=== PATIENT | male | born 1930 | race Caucasian/White ===

== ENCOUNTER 2017-11-24 09:11 | Day surgery (SDC) | payer MEDICARE, OTHER ==
[~2017-11-24 09:11] MED LIST: Acetaminophen TAB* 325 MG PO PRN; Buffered Lidocaine 0.9% SYRIN* 5 ML/SYR SYRINGE INTRADERM ONE
[2017-11-24] MEDS ORDERED: Midazolam* 1 MG/ML 2 ML VIAL (2 MG) ONE (10:20)
[2017-11-24 11:35] VITALS: BP 158/92
[2017-11-24] MEDS ORDERED: Cyclopentolate 1% OPTH.SOL* 2 ML BTL ONE (12:38)
[2017-11-24] MEDS ORDERED: Phenylephrine 2.5% OPTH.SOL* 2 ML BTL ONE (12:38)
[2017-11-24] MEDS ORDERED: Lidocaine 1% MPF* 2 ML VIAL ONE (12:38)
[2017-11-24] MEDS ORDERED: Tetracaine 0.5% OPTH.SOL 4 ML* 1 DROP BTL ONE (12:39)
[2017-11-24] MEDS ORDERED: Tropicamide 1% OPTH.SOL* BTL ONE (12:39)
[2017-11-24] MEDS ORDERED: Neomycin/Polymy/Dex OPHTH.OIN* 3.5 GM ONE (12:39)
[2017-11-24] MEDS ORDERED: Ketorolac 0.5% OPHTH (NF) 0.5 % 5 ML BTL ONE (12:39)
--- NOTE | 2017-11-25 02:55 | OP ---
DATE OF OPERATION: 11/24/17 - [facility] DATE OF : 30 SURGEON: Robe Serrano MD OVERLOCK COLLAR SETTER: None. ANESTHESIA: Topical with intravenous sedation. PRE-OP DIAGNOSIS: Cataract with glaucoma, left eye. POST-OP DIAGNOSIS: Cataract with glaucoma, left eye. OPERATIVE PROCEDURE: Phacoemulsification, cataract extraction with posterior chamber intraocular lens implant, left eye and iStent implant, left eye. COMPLICATIONS: None. BLOOD LOSS: None. DESCRIPTION OF PROCEDURE: The patient was brought to the operating room and given a small amount of intra-venous sedation. A drop of Tetracaine was placed into his left eye. The patient was prepped and draped in the usual sterile fashion for ophthalmic surgery and attention was directed to the left eye, where a speculum was placed. A para-centesis was created at the 5 o'clock position and 0.1 cc of 1% preservative-free lidocaine was injected into the anterior chamber followed by DisCoVisc. The eye was digitally stabilized while a 2.75 mm keratome was used to create a triplanar clear corneal incision at the 3 o'clock position. A continuous curvilinear capsulorrhexis was created with a cystotome and Utrata forceps. BSS on a cannula was used to hydrodissect the lens from the capsule. Phacoemulsification was performed in a divide-and- conquer technique to create 4 fragments, which were removed. Residual cortical material was removed with irrigation and aspiration. DisCoVisc was used to inflate the capsular bag. An AU00T0 20.5 diopter lens was folded and inserted into the capsular bag. Supplemental DisCoVisc was placed to the anterior chamber. DisCoVisc was also placed on the surface of the cornea. The patient' s head was rotated away from the surgeon and the microscope was rotated towards the surgeon. A gonioprism was placed on the surface of the eye. Under direct visualization, iStent was implanted into the nasal trabecular meshwork. The gonioprism was removed. The patient's head and microscope were returned to a neutral position. Viscoelastic was removed from the eye using irrigation aspiration. BSS on a cannula was used to hydrate the corneal stroma and seal the wound. At the end of the case, the pupil was round. The lens was centered and stable. The iStent was in good position. The eye pressure appeared normal and the wound was water tight. Topical Maxitrol ointment was placed on the surface of the eye. The eye was closed, patched and shielded, and the patient was sent to recovery room in stable condition with postop instructions and followup appointment given. [id number]/[facility] #: [id number] YISSEL
== END 2017-11-24 11:40 | disposition home or self-care (01) ==
LOC: OREAST 09:11
PROVIDERS: ATTEND Ophthalmology
DX: H25.12 Age-related nuclear cataract, left eye (principal); H40.89 Other specified glaucoma; I48.91 Unspecified atrial fibrillation; Z79.01 Long term (current) use of anticoagulants; Z85.828 Personal history of other malignant neoplasm of skin
CPT/HCPCS: A9270-GY; C1783; J2250; V2632

== ENCOUNTER 2017-12-08 11:52 | Day surgery (SDC) | payer MEDICARE, OTHER ==
[~2017-12-08 11:52] MED LIST changes: +Midazolam* 1 MG/ML 2 ML VIAL (2 MG) IV SCH; +fentaNYL* 50 MCG/ML 2 ML VIAL (100 MCG VIAL) IV SCH
[2017-12-08] MEDS ORDERED: Phenylephrine 2.5% OPTH.SOL* 2 ML BTL ONE (12:42)
[2017-12-08] MEDS ORDERED: Tropicamide 1% OPTH.SOL* BTL ONE (12:42)
[2017-12-08] MEDS ORDERED: Lidocaine 1% MPF* 2 ML VIAL ONE (12:42)
[2017-12-08] MEDS ORDERED: Ketorolac 0.5% OPHTH (NF) 0.5 % 5 ML BTL ONE (12:42)
[2017-12-08] MEDS ORDERED: Tetracaine 0.5% OPTH.SOL 4 ML* 1 DROP BTL ONE (12:42)
[2017-12-08] MEDS ORDERED: Cyclopentolate 1% OPTH.SOL* 2 ML BTL ONE (12:42)
[2017-12-08] MEDS ORDERED: Phenylephr/Ketorolac 1%/0.3% OPH DROP BTL ONE (12:42)
[2017-12-08] MEDS ORDERED: Neomycin/Polymy/Dex OPHTH.OIN* 3.5 GM ONE (12:42)
[2017-12-08 13:47] VITALS: BP 144/91
--- NOTE | 2017-12-09 12:04 | OP ---
OPERATIVE REPORT: DATE OF OPERATION: 12/08/17 DATE OF : 30 SURGEON: Robe Serrano MD. NUCLEAR PLANT INSTRUMENT TECHNICIAN: None. ANESTHESIA: Topical with intravenous sedation. PRE-OP DIAGNOSIS: Cataract and glaucoma, right eye. POST-OP DIAGNOSIS: Cataract and glaucoma, right eye. OPERATIVE PROCEDURE: Phacoemulsification and cataract extraction with posterior chamber intraocular lens implant and CyPass implant, right eye. COMPLICATIONS: None. BLOOD LOSS: None. OPERATIVE FINDINGS: The patient was brought to the operating room and given a small amount of intrav enous sedation. A drop of Tetracaine was placed into his right eye. The patient was prepped and debby ped in the usual sterile fashion for ophthalmic surgery and attention was directed to the right eye w here a speculum was placed. A paracentesis was created at the 11 o'clock position and 0.1 cc of 1% p reservative-free Lidocaine was injected into the anterior chamber followed by DisCoVisc. The eye was digitally stabilized while a 2.75 mm keratome was used to create a triplanar clear corneal incision at the 9 o'clock position. A continuous curvilinear capsulorrhexis was created with a cystotome and Utrata forceps. BSS on a cannula was used to hydrodissect the lens from the capsule. Phacoemulsific ation was performed in a [id number] technique to create 4 fragments, which were removed. Res idual cortical material was removed with irrigation and aspiration. DisCoVisc was used to inflate the capsular bag. An AU00T0 20.5 diopter lens was inserted into the capsular bag. Supplemental DisCoVi sc was used to deepen the anterior chamber and coat the surface of the cornea. The patient's head wa s rotated away from the surgeon and the microscope was rotated towards the surgeon. A gonioprism was placed on the surface of the cornea. An CyPass on its cnc mill operator was introduced into the anterior ernesto jack. Under direct visualization, the CyPass was introduced into the supraciliary space in the infero nasal quadrant of the angle of the eye. The CyPass was released in this position and tapped to the p lucio depth. The CyPass cnc mill operator and the gonioprism were removed. The patient's head and the micros cope were returned to a neutral position. Viscoelastic was removed from the eye. BSS on a cannula w as used to hydrate the corneal stroma and seal the wound. At the end of the case, the pupil was roun d. The lens was centered and stable. The CyPass was in good position. The eye pressure appeared no rmal, and the wound was watertight. The speculum was removed and topical Maxitrol ointment was place d on the surface of the eye. The eye was closed, patched, and shielded, and the patient was sent to the recovery room in stable condition with postoperative instructions and followup appointment given. [id number]/[facility] #: [id number]
== END 2017-12-08 13:49 | disposition home or self-care (01) ==
LOC: OREAST 11:52
PROVIDERS: ATTEND Ophthalmology
DX: H25.11 Age-related nuclear cataract, right eye (principal); H40.89 Other specified glaucoma; I10 Essential (primary) hypertension; I48.91 Unspecified atrial fibrillation; Z79.01 Long term (current) use of anticoagulants; H35.30 Unspecified macular degeneration; Z85.46 Personal history of malignant neoplasm of prostate
CPT/HCPCS: A9270-GY; C9447; J2250; J3010; V2632

== ENCOUNTER → 2018-01-09 11:26 | Emergency (ER) | payer MEDICARE, OTHER ==
[2018-01-09 11:38] VITALS: BP 163/85
--- NOTE | 2018-01-09 12:20 | ED ---
Skin Complaint - HPI Summary HPI Summary: Pt here w/ wound issue today. 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 His wound care nurse came to his residence today to change dressing/ wound VAC and reported Integra graft was attached to sponge so it was not removed any further. Both nurse and pt felt this was too early to change dressing however with lack of clear instructions, proceeded anyway. Pt denies pain, fever, chills, headache, chest pain, change in appetite, neck pain/ swelling/stiffness, difficulty breathing or swallowing. He does note that his wound VAC drain has not been draining. He has been taking his clindamycin as directed and denies diarrhea. His plastic surgeon is Dr. John Yoon - . - History of Current Complaint Hx Obtained From: Patient, Family/Construction Management Assistant - female friend Pain Intensity: 0 - Additional Pertinent History Primary Care Physician: [id number] <Bee Tavera - Last Filed: 01/11/18 07:21> <Josh Combs - Last Filed: 01/11/18 08:09> - History of Current Complaint Chief Complaint: EDExtremityUpper Time Seen by Provider: 01/09/18 11:57 Stated Complaint: POST-SURGICAL ISSUE ON HEAD - Allergy/Home Medications Allergies/Adverse Reactions: Allergies Allergy/AdvReac Type Severity Reaction Status Date / Time cefuroxime Allergy Severe See Comment Verified 12/08/17 12:09 hydrochlorothiazide Allergy Severe Rash Verified 12/08/17 12:09 Home Medications: Home Medications C,E,Zinc,Copper 11/Lngcf7o/Lut [Ocuvite Adult 50 Plus Softgel] 1 cap PO DAILY [History Confirmed 01/09/18] Clindamycin Cap(NF) [Clindamycin Cap 300 mg Cap(NF)] 300 mg PO TID 01/09/18 [ History Confirmed 01/09/18] PMH/Surg Hx/FS Hx/Imm Hx Previously Healthy: Yes Endocrine/Hematology History: Reports: Hx Anticoagulant Therapy - xarelto, Hx Bone Marrow Disease, Hx Sickle Cell Disease Denies: Hx Diabetes, Hx Thyroid Disease, Hx Anemia, Hx Unexplained Bleeding Cardiovascular History: Reports: Hx Atrial Fibrillation - hx ablation, Hx Hypertension Denies: Hx Aneurysm, Hx Angina, Hx Angioplasty, Hx Auto Implanted Cardiovert Defib, Hx Cardiac Arrest, Hx Cardiomegaly, Hx Congenital Heart Disease, Hx Congestive Heart Failure, Hx Coronary Artery Disease, Hx Deep Vein Thrombosis, Hx Embolism, Hx Hypotension, Hx Myocardial Infarction, Hx Pacemaker/ICD, Hx Peripheral Vascular Disease, Hx Rheumatic Fever, Hx Syncope, Hx Valvular Heart Disease, Other Cardiovascular Problems/Disorders Respiratory History: Denies: Hx Asthma, Hx Chronic Obstructive Pulmonary Disease (COPD), Hx Lung Cancer, Hx Pneumonia, Hx Pulmonary Embolism GI History: Reports: Hx Hiatal Hernia Denies: Hx Gall Bladder Disease, Hx Gastrointestinal Bleed, Hx Obstructive Bowel, Hx Ulcer, Hx Urosepsis History: Reports: Other Problems/Disorders - PROSTATE CANCER Denies: Hx Acute Renal Failure, Hx Benign Prostatic Hyperplasia, Hx Chronic Renal Failure, Hx Dialysis, Hx Kidney Infection, Hx Kidney Stones, Hx Renal Disease Musculoskeletal History: Reports: Hx Arthritis, Hx Back Problems Denies: Hx Bursitis, Hx Congenital Bone Abnormalities, Hx Fibromyalgia, Hx Gout, Hx Orthopedic Injury, Hx Osteoporosis, Hx Scoliosis, Hx Tendonitis, Other Musculoskeletal History Sensory History: Reports: Hx Contacts or Glasses, Hx Glaucoma Denies: Hx Cataracts, Hx Eye Injury, Hx Eye Prosthesis, Hx Legally Blind, Hx Macular Degeneration, Hx Vision Problem, Hx Hearing Aid, Hx Hearing Problem, Other Sensory Impairments Opthamlomology History: Reports: Hx Contacts or Glasses, Hx Glaucoma Denies: Hx Cataracts, Hx Eye Injury, Hx Eye Prosthesis, Hx Legally Blind, Hx Macular Degeneration, Hx Vision Problem, Other Sensory Impairments Neurological History: Denies: Hx Dementia, Hx Headaches, Hx Migraine, Hx Seizures, Hx Transient Ischemic Attacks (TIA) Psychiatric History: Denies: Hx Anxiety, Hx Depression, Hx Panic Disorder, Hx Schizophrenia, Hx Bipolar Disorder - Cancer History Cancer Type, Location and Year: [facility] Hx Chemotherapy: Yes - HORMONAL INJECTION [id number] Hx Radiation Therapy: No - PRE TREATMENT PLANNING Hx Palliative Cancer Treatment: No - Surgical History Surgery Procedure, Year, and Place: APPENDECTOMY 8- [place]. VASECTOMY 1972 ,--[place]. HEART ABLATION 2004-[place]. 09/2013 SKIN CANCER REMOVAL RT FOREHEAD, [facility], [place]. SKIN CANCER REMOVED FROM TOP OF HEAD 2015. SEVERAL MOHS PROCEDURES - SKIN CANCER -MULTIPLE AREAS ON BODY, [facility] & [place]. EYE LIDS - COSMETIC FOR DROOPY EYELIDS Hx Anesthesia Reactions: No - Immunization History Immunizations Up to Date: Yes Infectious Disease History: No Infectious Disease History: Denies: Traveled Outside the [place] in Last 30 Days - Family History Known Family History: Positive: Unknown - Social History Occupation: Retired Lives: Alone - [place] Alcohol Use: Rare Alcohol Amount: 1 DRINK/WEEK Hx Substance Use: No Substance Use Type: Reports: None Hx Tobacco Use: No Smoking Status (MU): Never Smoked Tobacco Have You Smoked in the Last Year: No <Bee Tavera - Last Filed: 01/11/18 07:21> Review of Systems Constitutional: Negative Negative: Fever, Chills Negative: Chest Pain Negative: Shortness Of Breath Negative: Vomiting, Diarrhea, Nausea Positive: no symptoms reported Musculoskeletal: Negative Skin: Other - skin graft issue Neurological: Negative Psychological: Normal All Other Systems Reviewed And Are Negative: Yes <Bee aTvera - Last Filed: 01/11/18 07:21> Physical Exam Triage Information Reviewed: Yes Vital Signs On Initial Exam: Initial Vitals Temp Pulse Resp BP Pulse Ox 98.6 F 62 18 163/85 96 01/09/18 11:29 01/09/18 11:29 01/09/18 11:29 01/09/18 11:29 01/09/18 11:29 Vital Signs Reviewed: Yes Appearance: Positive: Well-Appearing, No Pain Distress, Well-Nourished Skin: Positive: Other - Rt posterior parietal region with dressing covering vaccum sponge - upon investigation, semipermeable silicone layer appears to be intact over wound with carolyn in place however grid-like layer of Acticoat? dressing appears to be adherent to sponge - no peripheral erythema or edema and no tono d/c however there is scant dark dried streaking over Rt side of neck - does not appear to be blood - possibly leakage from sponge? Head/Face: Positive: Other - as above Eyes: Positive: Normal, EOMI, Conjunctiva Clear ENT: Positive: Pharynx normal. Negative: Hearing grossly normal - mild hearing loss Neck: Positive: Supple, Nontender, No Lymphadenopathy Respiratory/Lung Sounds: Positive: Breath Sounds Present Cardiovascular: Positive: IRR Musculoskeletal: Positive: Normal, Strength/ROM Intact Neurological: Positive: Normal, Sensory/Motor Intact, Alert, Oriented to Person Place, Time, CN Intact II-III, Facial Symmetry, Speech Normal, Other - good historian Psychiatric: Positive: Normal - pleasant, calm, cooperative <eBe Tavera - Last Filed: 01/11/18 07:21> Vital Signs On Initial Exam: Initial Vitals Temp Pulse Resp BP Pulse Ox 98.6 F 62 18 163/85 96 01/09/18 11:29 01/09/18 11:29 01/09/18 11:29 01/09/18 11:29 01/09/18 11:29 <Josh Combs - Last Filed: 01/11/18 08:09> Procedures - Procedure Summary Procedure Summary: Vaccum sponge and dressing removed, leaving stapled-in silicone dressing in place. With sterile gloves, xeroform and wound VAC reapplied - suction to 125 and successful Assisted by nurse Ember Zuniga Pt tolerated well <Bee Tavera - Last Filed: 01/11/18 07:21> Diagnostics - Vital Signs Vital Signs Temp Pulse Resp BP Pulse Ox 01/09/18 11:29 98.6 F 62 18 163/85 96 <Bee Tavera - Last Filed: 01/11/18 07:21> - Vital Signs Vital Signs Temp Pulse Resp BP Pulse Ox 01/09/18 11:29 98.6 F 62 18 163/85 96 <Josh Combs - Last Filed: 01/11/18 08:09> Course/Dx - Course Course Of Treatment: Discussed w/ Dr. Quin Cortés, resident plastic surgeon from Dr. John Yoon's practice. Advised reapplying a new wound VAC if possible w/ xeroform or simply xeroform w/ ABD dressing and gauze. Nurse Peralta and myself were able to apply wound VAC successfully. Pt tolerated well. He will be receiving a call Thursday from [facility] to recheck wound. Pt and daughter are aware of danger s/sx of when to return to ED otherwise. <Bee Tavera - Last Filed: 01/11/18 07:21> <Josh Combs - Last Filed: 01/11/18 08:09> - Diagnoses Provider Diagnoses: Encounter for management of wound VAC Discharge - Sign-Out/Discharge Documenting (check all that apply): Post-Discharge Follow Up - Billing Disposition and Condition Condition: STABLE Disposition: HOME <Bee Tavera - Last Filed: 01/11/18 07:21> - Billing Disposition and Condition Condition: STABLE Disposition: HOME <Josh Combs - Last Filed: 01/11/18 08:09> - Discharge Plan Condition: Stable Disposition: HOME Patient Education Materials: Negative Pressure Wound Therapy (DC) Referrals: John Yoon MD [Medical Doctor] - Additional Instructions: Keep dressing in place until follow-up care is provided either through [facility] or plastic surgery provider. You should receive a call Thursday regarding this follow-up care. *If you develop fever, chills, excessive drainage or wound dressing comes loose , return to the emergency department
== END | disposition home or self-care (01) ==
LOC: ED 11:26
DX: T81.89XA Other complications of procedures, not elsewhere classified, initial encounter (principal); Z48.01 Encounter for change or removal of surgical wound dressing; I48.91 Unspecified atrial fibrillation; Z79.01 Long term (current) use of anticoagulants; I10 Essential (primary) hypertension; Z85.46 Personal history of malignant neoplasm of prostate; Z85.820 Personal history of malignant melanoma of skin; Z88.8 Allergy status to other drugs, medicaments and biological substances; Z88.1 Allergy status to other antibiotic agents
CPT/HCPCS: 99282